=== PATIENT | female | born 1980 | race Caucasian/White ===

== ENCOUNTER 2019-05-11 11:20 | Outpatient (CLI) | payer OTHER, SELFPAY ==
--- NOTE | ~2019-05-11 | XR_ITS ---
EXAMINATION: XR lg joint inject/asp w image DATE: 05/11/2019 12:13 INDICATION: Right hip pain. TECHNIQUE: A time-out was performed to verify the patient's name, date of , and procedure to b e performed. The procedure including the risks, benefits, and alternatives was discussed with the pat ient. Risks discussed included bleeding and infection. The patient understood the risks and agreed to proceed. The skin overlying the right hip joint was prepped and draped in usual sterile fashion. A nesthetic was administered with 1% lidocaine subcutaneously. A 22 G needle was advanced under fluoro scopic guidance into the joint. Injection of 1 mL of Omnipaque 240 confirmed intra-articular positio n of the needle. Subsequently, injectate consisting of 2 mL 1% lidocaine and 1 mL 40 mg/mL Depo-Medr ol was instilled. The needle was removed and the entry site was cleaned and dressed. There were no immediate complications. Fluoroscopy exposure time was 0.0 minutes. The total number of images was 2. FINDINGS: Real-time fluoroscopy demonstrates the needle in the right hip joint. Patient's pain prior to procedure:1/10. Patient's pain following the procedure: 0/10. IMPRESSION: 1. Right hip joint injection of local anesthetic and steroid with decrease in the patient's presentin g pain. Reviewed, dictated and finalized at location [facility]. [employer] IMPRESSION: 1. Right hip joint injection of local anesthetic and steroid with decrease in t he patient's presenting pain.
== END 2019-05-11 11:21 | disposition home or self-care (01) ==
LOC: ANHIMG 11:34
PROVIDERS: PCP Family Medicine
DX: M25.551 Pain in right hip (principal)
CPT/HCPCS: 20610; 77002; J3301; Q9966

== ENCOUNTER 2023-11-13 19:31 | Emergency (ER) | payer BC, SELFPAY | END 2023-11-13 19:48 | disposition left against medical advice (07) | PROVIDERS: Emergency Provider Internal Medicine Hematology & Oncology; PCP Family Medicine | DX: Z53.21 Procedure and treatment not carried out due to patient leaving prior to being seen by health care provider (principal) | CPT/HCPCS: 99199 ==

== ENCOUNTER 2024-08-16 09:03 | Outpatient (CLI) | payer BC, SELFPAY ==
--- NOTE | ~2024-08-16 | MR_ITS ---
MRI of the right shoulder Technique: Axial proton-density fat-sat images, coronal proton density fat-sat and T2 fat-sat images, and sagittal T1-weighted and T2 fat-sat images were acquired. Clinical History: Pain Findings: There is moderate AC joint degenerative change, probably productive change about the joint. No subacromial spur evident. Coracoclavicular, coracoacromial, and coracohumeral ligaments are intac t. Supraspinatus and infraspinatus tendons are intact, without partial or full-thickness tear. Subscapul aida tendon is intact. There is mild rotator cuff tendinosis. Tendon of long head of the biceps is in tact. There is tear at the posterior superior labrum and posterior labrum at the equator. There is a somewh at tubular paralabral cyst extending along the posterior margin of the glenoid centrally, measuring u p to approximately 3.1 cm in overall length (axial images 15-18). Inferior glenohumeral ligament is intact. No degenerative change or effusion of the glenohumeral join t. No fluid distention of the subacromial/subdeltoid bursa. No muscle atrophy or edema. Impression: Posterior to posterior superior labral tear with tubular elongated para-labral cyst along the posteri or margin of the glenoid measuring 3.1 cm in length. Moderate AC joint degenerative change. Reviewed, dictated and finalized at [facility]. Impression: Posterior to posterior superior labral tear with tubular elongated para-labral cyst along the posterior margin of the glenoid measuring 3.1 cm in length. Moderate AC joint degenerative change.
== END 2024-08-16 09:04 | disposition home or self-care (01) ==
PROVIDERS: PCP Orthopaedic Surgery; Visit Provider Orthopaedic Surgery
DX: M75.81 Other shoulder lesions, right shoulder (principal); M19.011 Primary osteoarthritis, right shoulder
CPT/HCPCS: 73221

== ENCOUNTER 2024-10-14 13:15 | Outpatient (RCR) | payer BC, SELFPAY ==
--- NOTE | 2024-09-07 15:14 | OPREHPOC ---
Outpatient Therapy Plan of Care This is a Multidisciplinary Plan of Care that may contain components documented by all disciplines (PT, OT, and ST.) PT Problem 1 PT Problem #1 Knowledge Deficit PT Goal 1 Goal / Goal Update 1. Patient to demonstrate independence with HEP for improved self-reliance of symptom management. 2. Patient to decrease subjective reports of pain to <2/10 for improved ADL tolerance. Target Visit 12 PT Problem 2 PT Problem #2 Impaired Strength PT Goal 1 Goal / Goal Update 1. Pt will demonstrate gross prone scapular strength to 4+/5 showing improvements in periscapular stability. 2. Pt will demonstrate R shoulder external rotation strength to 5/5 without pain provocation Target Visit 12 PT Problem 3 PT Problem #3 Impaired Functional Mobility PT Goal 1 Goal / Goal Update 1. Patient to improve right scapular motion when performing overhead activities to minimal abduction and winging / upper trapezieus compensation to improve stability required for overhead activities. 2. Pt will display a reduction of symptoms with no pain provocation with Carlisle Be or o brein test showing decrease symptoms and improved function. Target Visit 12
--- NOTE | 2024-09-07 15:14 | PTOPEVAL1 ---
Assessment and note entered by Trent Bee PT Evaluation Information Assessment Status Evaluation Diagnosis R shoulder pain ICD-10 Condition Codes (PT) Pain in right shoulder M25.511 Onset Dec 2023 Subjective Information Pt reports her shoulder began R shoulder began to hurt after receiving a flu shot in December of 2023 . She notes she has received 4 total into her shoulder with the most recent being august 03. 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 Pt currently has no follow ups with her orthopedic doctor scheduled but is wanting to try physical therapy before potentially getting another MRI with contrast. Reported Pain Level Pain Score 1: Self Report Assessment PT Clinical Summary Patient presents to physical therapy with a primary issue of R shoulder pain since December 2023 after getting a flu shot. Imaging shows labral damage and pt displays positive test for labral and rotator cuff pathology. Patient demonstrates shoulder girdle weakness, pain, decreased mobility that limit their ability to perform activities of daily living and functional movements. Patient will benefit from skilled physical therapy to address the above listed deficits and return to prior level of function. Home exercise program instructed and written handout provided, exercises tolerated well with no adverse effects to note post-session. Patient was educated on importance of adherence to home exercise program. Patient was also educated on anatomy, prognosis, home modalities, and plan of care. Plan of Care Interventions Electrical Stimulation,Hot Pack/Cold Pack,Manual Therapy,Neuro Re-education,Therapeutic Activities, Therapeutic Exercise,Ultrasound,Other PT Services Indicated Yes Treatment Frequency and 2x week 12 visits Duration These treatments will address the objective and functional deficits as defined above. The patient will be advanced safely and appropriately in order for the patient to progress towards his/her prior level of function. Additional exercises will be introduced and as well as a comprehensive home exercise program upon discharge, if needed, ?to ensure carryover of functional gains achieved in the clinic. This treatment plan has been reviewed and agreement upon by the patient.
--- NOTE | 2024-10-14 14:03 | PTOPDC ---
Assessment and note entered by Trent Bee PT Evaluation Information Assessment Status Discharge Diagnosis R shoulder pain ICD-10 Condition Codes (PT) Pain in right shoulder M25.511 Onset Dec 2023 Subjective Information Pt states she is currently having more pain and discomfort now then when she started Physical therapy after having a steroid injection. Pt states she thinks her last injection is fully wore off. Pt notes her shoulder is painful and clicks when bringing her arm across the body and with donning/doffing bra/shirt. Pt states she has had to discontinue yoga and Pilates due to increased pain and shoulder instability Reported Pain Level Pain Score 5: Self Report Assessment PT Clinical Summary Patient's R shoulder has made little to no changes in strength, and functional tolerance to activities of daily living. Patient displays symptoms of anterior instability and has a known SLAP tear causing pain and clicking in R shoulder. Patient is currently limited by pain after her injection wore off and is now having more intense pain limiting her participation in physical therapy exercise. Pt was educated to continue shoulder stability exercise she can perform in pain free ROM. Patient's physical therapy goals remain unmet with little to no progress made towards them. Patient to discharge from physical therapy this date and continue with home exercise program as instructed. Patient is scheduled to see orthopedic surgeon on FridayOctober 15. Plan of Care PT Services Indicated No
== END 2024-10-14 15:02 | disposition home or self-care (01) ==
LOC: ANHGOSHPT 13:15
PROVIDERS: PCP Family Medicine; Visit Provider Orthopaedic Surgery Sports Medicine
DX: M67.911 Unspecified disorder of synovium and tendon, right shoulder (principal); M35.7 Hypermobility syndrome; M25.511 Pain in right shoulder
CPT/HCPCS: 97014; 97110; 97112; 97140; 97161; G0283